=== PATIENT | female | born 1975 | race Caucasian/White ===

== ENCOUNTER 2019-08-18 02:00 | Emergency (ER) | payer OTHER ==
[~2019-08-18] VITALS: Ht 162.6 cm; Wt 104.3 kg
--- NOTE | 2019-08-18 02:24 | PHYS DOC ---
Past Medical History Past Medical History: Hypothyroid Additional Information: Former smoker Adult General Chief Complaint Chief Complaint: CHEST PAIN HPI HPI Patient is a 44 year old F that identifies as male that presents to the ED with CP. Pt states that she has been having dull intermittent, substernal, chest pain for the last month that became constant the last week. Pain radiates to the back and L shoulder. Associated sx: SOB, tachycardia, vomiting, sweating. Alleviating factors: pushing on chest. Aggravating factors: none. Pt states she went into a walk in clinic on Thursday and had a normal EKG. Review of Systems Review of Systems Constitutional: Denies fever or chills, reports sweats Eyes: Denies redness or eye pain HENT: Denies nasal congestion or sore throat Respiratory: Denies cough, reports shortness of breath Cardiovascular: Reports substernal chest pain that radiates to back GI: Denies abdominal pain, nausea, reports vomiting : Denies dysuria or hematuria Musculoskeletal: Denies back pain or joint pain Integument: Denies rash or skin lesions Neurologic: Denies headache, focal weakness or sensory changes Complete systems were reviewed and found to be within normal limits, except as documented in this note. Current Medications Current Medications Current Medications Medications (Trade) Dose Ordered Sig/Radha Start Time Stop Time Status Last Admin Dose Admin Aspirin (Xavier Aspirin) 325 mg 1X ONCE 08/18/19 02:45 08/18/19 02:46 DC 08/18/19 03:11 325 MG Fentanyl Citrate (Fentanyl 2ml Vial) 50 mcg 1X ONCE 08/18/19 02:45 08/18/19 02:46 DC 08/18/19 03:11 50 MCG Info (CONTRAST GIVEN -- Rx MONITORING) 1 each PRN DAILY PRN 08/18/19 04:15 08/20/19 04:14 Iohexol (Omnipaque 350 Mg/ml) 75 ml 1X ONCE 08/18/19 04:00 08/18/19 04:24 DC 08/18/19 04:16 75 ML Ondansetron HCl (Zofran) 4 mg 1X ONCE 08/18/19 02:45 08/18/19 02:46 DC 08/18/19 03:10 4 MG Potassium Chloride (Klor-Con) 40 meq 1X ONCE 08/18/19 05:00 08/18/19 05:01 DC Sodium Chloride 1,000 ml @ 1,000 mls/hr 1X ONCE 08/18/19 02:45 08/18/19 03:44 DC 08/18/19 03:10 1,000 MLS/HR Allergies Allergies Allergies Coded Allergies Type Severity Reaction Last Updated Verified Penicillins Allergy Intermediate 08/18/19 Yes ciprofloxacin Allergy Intermediate 08/18/19 Yes clindamycin Allergy Intermediate 08/18/19 Yes erythromycin base Allergy Intermediate 08/18/19 Yes moxifloxacin Allergy Intermediate 08/18/19 Yes Physical Exam Physical Exam Constitutional: Well developed, well nourished, mild distress, non-toxic ap pearance HENT: Normocephalic, atraumatic, oropharynx moist Eyes: PERRL, EOMI, conjunctiva normal, no discharge Neck: Normal range of motion, no tenderness, supple Cardiovascular: Tachycardic, regular rhythm Lungs & Thorax: Bilateral breath sounds clear to auscultation, no wheezing Abdomen: Soft, no tenderness Skin: Warm, dry, no erythema, no rash Back: No tenderness, no CVA tenderness Extremities: No tenderness, ROM intact, no edema Neurologic: Alert and oriented X 3, normal motor function, normal sensory function, no focal deficits noted Psychologic: Affect normal, judgement normal, mood normal Current Patient Data Vital Signs Vital Signs Date Time Temp Pulse Resp B/P (MAP) Pulse Ox O2 Delivery O2 Flow Rate FiO2 08/18/19 03:11 18 98 08/18/19 02:47 98.1 110 127/65 (85) Room Air 98.1 Lab Values Laboratory Tests Test 08/18/19 03:03 White Blood Count 15.1 x10^3/uL (4.0-11.0) H Red Blood Count 5.79 x10^6/uL (3.50-5.40) H Hemoglobin 18.4 g/dL (12.0-15.5) H Hematocrit 52.8 % (36.0-47.0) H Mean Corpuscular Volume 91 fL (79-100) Mean Corpuscular Hemoglobin 32 pg (25-35) Mean Corpuscular Hemoglobin Concent 35 g/dL (31-37) Red Cell Distribution Width 12.5 % (11.5-14.5) Platelet Count 237 x10^3/uL (140-400) Neutrophils (%) (Auto) 69 % (31-73) Lymphocytes (%) (Auto) 22 % (24-48) L Monocytes (%) (Auto) 6 % (0-9) Eosinophils (%) (Auto) 2 % (0-3) Basophils (%) (Auto) 1 % (0-3) Neutrophils # (Auto) 10.5 x10^3/uL (1.8-7.7) H Lymphocytes # (Auto) 3.3 x10^3/uL (1.0-4.8) Monocytes # (Auto) 0.9 x10^3/uL (0.0-1.1) Eosinophils # (Auto) 0.3 x10^3/uL (0.0-0.7) Basophils # (Auto) 0.1 x10^3/uL (0.0-0.2) Prothrombin Time 12.9 SEC (11.7-14.0) Prothrombin Time INR 1.0 (0.8-1.1) Activated Partial Thromboplast Time 25 SEC (24-38) Sodium Level 138 mmol/L (136-145) Potassium Level 3.2 mmol/L (3.5-5.1) L Chloride Level 99 mmol/L (98-107) Carbon Dioxide Level 27 mmol/L (21-32) Anion Gap 12 (6-14) Blood Urea Nitrogen 16 mg/dL (7-20) Creatinine 1.2 mg/dL (0.6-1.0) H Estimated GFR (Cockcroft-Gault) 49.3 BUN/Creatinine Ratio 13 (6-20) Glucose Level 144 mg/dL (70-99) H Lactic Acid Level 2.2 mmol/L (0.4-2.0) H Calcium Level 9.2 mg/dL (8.5-10.1) Magnesium Level 1.8 mg/dL (1.8-2.4) Total Bilirubin 0.3 mg/dL (0.2-1.0) Aspartate Amino Transferase (AST) 22 U/L (15-37) Alanine Aminotransferase (ALT) 44 U/L (14-59) Alkaline Phosphatase 45 U/L (46-116) L Creatine Kinase 111 U/L (26-192) Creatine Kinase MB (Mass) 0.7 ng/mL (0.0-3.6) Creatine Kinase MB Relative Index 0.6 % (0-4) Troponin I Quantitative < 0.017 ng/mL (0.000-0.055) XH-Fgu-N-Type Natriuretic Peptide 7 pg/mL (0-124) Total Protein 7.7 g/dL (6.4-8.2) Albumin 4.2 g/dL (3.4-5.0) Albumin/Globulin Ratio 1.2 (1.0-1.7) Lipase 208 U/L (73-393) Laboratory Tests 08/18/19 03:03 Laboratory Tests 08/18/19 03:03 EKG EKG @0207, tachycardic at 105bpm, otherwise normal, No STEMI Radiology/Procedures Radiology/Procedures [] Course & Med Decision Making Course & Med Decision Making Pertinent Labs and Imaging studies reviewed. (See chart for details) Pt is a 44yo F that identifies as male presents to the ED for chest pain for the last 2 months. Cardiac workup unremarkable. Resting comfortably in the ED [place] at 0520. CT showed incidental pulmonary nodules. Extensive discussion with pt regarding these findings, risk factors, and need to follow up with PCP for further evaluation. Pt was understanding and agreeable with plan. Due to pt being without any urinary symptoms and requesting to go home, will cancel UA. Pt discharge home with Zofran and Protonix. Dragon Disclaimer Dragon Disclaimer This electronic medical record was generated, in whole or in part, using a voice recognition dictation system. Departure Departure Impression: Primary Impression: Atypical chest pain Additional Impressions: Pulmonary nodules Hiatal hernia Hypokalemia Disposition: HOME, SELF-CARE Condition: STABLE Referrals: MAGDALENA BROWER MD Patient Instructions: Chest Pain (Nonspecific), [id number], Hiatal Hernia, Hypokalemia-Brief, Potassium Content of Foods, Pulmonary Nodule, [id number] Scripts Pantoprazole Sodium (PROTONIX) 20 Mg Tablet. 2 TAB PO DAILY, #30 TAB Prov: RAJNI GANN DO 08/18/19 Ondansetron (ONDANSETRON ODT) 4 Mg Tab.rapdis 1 TAB PO PRN Q6-8HRS PRN for NAUSEA, #16 TAB Prov: RAJNI GANN DO 08/18/19 Problem Qualifiers RAJNI GANN DO Aug 18, 2019 02:24
[2019-08-18] MEDS ORDERED: IV NORMAL SALINE 1000ML BAG 1,000 ML IV ONE (02:45)
[2019-08-18] MEDS ORDERED: ASPIRIN 325 MG TABLET PO ONE (02:45)
[2019-08-18] MEDS ORDERED: fentaNYL PF VIAL 100 MCG/2 ML VIAL IVP ONE (02:45)
[2019-08-18] MEDS ORDERED: ONDANSETRON PF 4 MG/2 ML VIAL. IVP ONE (02:45)
[2019-08-18 03:16] LABS: BASO # 0.1 x10^3/uL (0.0-0.2); BASO % 1 % (0-3); EOS # 0.3 x10^3/uL (0.0-0.7); EOS % 2 % (0-3); HEMATOCRIT 52.8 % (36.0-47.0); HEMOGLOBIN 18.4 g/dL (12.0-15.5); LYMPH # 3.3 x10^3/uL (1.0-4.8); LYMPH % 22 % (24-48); MEAN CORPUSCULAR HEMOGLOBIN 32 pg (25-35); MEAN CORPUSCULAR HGB CONC 35 g/dL (31-37); MEAN CORPUSCULAR VOLUME 91 fL (79-100); MONO # 0.9 x10^3/uL (0.0-1.1); MONO % 6 % (0-9); NEUT # 10.5 x10^3/uL (1.8-7.7); NEUT % 69 % (31-73); PLATELET COUNT 237 x10^3/uL (140-400); RED BLOOD COUNT 5.79 x10^6/uL (3.50-5.40); RED CELL DISTRIBUTION WIDTH 12.5 % (11.5-14.5); WHITE BLOOD COUNT 15.1 x10^3/uL (4.0-11.0)
[2019-08-18 03:23] LABS: PROTHROMBIN TIME PATIENT 12.9 SEC (11.7-14.0)
[2019-08-18 03:29] LABS: CALCIUM 9.2 mg/dL (8.5-10.1); CREATININE 1.2 mg/dL (0.6-1.0); GFR 49.3; POTASSIUM 3.2 mmol/L (3.5-5.1)
[2019-08-18 03:40] LABS: ALBUMIN 4.2 g/dL (3.4-5.0); ALBUMIN/GLOBULIN RATIO 1.2 (1.0-1.7); MAGNESIUM 1.8 mg/dL (1.8-2.4); TOTAL BILIRUBIN 0.3 mg/dL (0.2-1.0); TOTAL PROTEIN 7.7 g/dL (6.4-8.2)
[2019-08-18] MEDS ORDERED: IOHEXOL 350 MG/ML 100 ML VIAL. IV ONE (04:00)
[2019-08-18] MEDS ORDERED: CONTRAST GIVEN. MC PRN (04:15)
--- NOTE | 2019-08-18 04:57 | RAD ---
CT angiography chest with contrast PQRS statement: CT scans at this facility use dose reduction including either automated exposure control, iterative reconstructions, and /or weight based radiation dosing via mA and kV modification when appropriate to reduce radiation dose to as low as reasonably achievable. HISTORY: Shortness of breath. TECHNIQUE: CT imaging the chest with 75 mL Omnipaque 350 intravenous contrast with 3-D MIP reconstructions of the pulmonary arteries. FINDINGS: There is absent contrast density within the pulmonary arteries and right heart chambers with all the contrast within the aorta and left heart due to timing of imaging the contrast bolus or patient Valsalva during the exam, not allowing assessment for pulmonary emboli. Small sliding hiatal hernia gastroesophageal junction. Esophagus unremarkable. Aorta unremarkable. No adenopathy in the chest. Bilateral mastectomy. Triangular 5 mm nodule of the lingula image 84. Left lower lobe oval subpleural solid 6 mm nodule image 106. Oval solid right middle lobe 6 a pulmonary nodule image 100. 3 mm solid nodule right lower lobe image 105 posterior of which is a 2 mm nodule. No pneumothorax or pulmonary opacities or pleural effusions. Bones are unremarkable IMPRESSION: 1. No acute process. There is limited contrast density within the pulmonary arteries not allowing assessment for emboli. If there is a high clinical suspicion for pulmonary emboli consider further assessment with nuclear medicine imaging. 2. Solid pulmonary nodules largest measuring 6 mm. Per Fleischner guidelines follow-up CT imaging in 6 months is advised. 3. Small sliding hiatal hernia gastroesophageal junction. Electronically signed by: Sebastian De La Torre MD (08/18/2019 4:54 AM) [id number]
[2019-08-18] MEDS ORDERED: POTASSIUM CHLORIDE 20 MEQ TABLET.ER. PO ONE (05:00)
[2019-08-18] MEDS ORDERED: ONDA4TAB12 PO (05:24)
[2019-08-18] MEDS ORDERED: PANT20TA2 PO (05:24)
[2019-08-18 05:32] VITALS: BP 147/87
--- NOTE | 2019-08-18 06:50 | EKG ---
[facility] [address] [place] [address] Test Date: 2019-08-18 Test Time: 02:07:28 Pat Name: SANDIP PENA Department: Room: Gender: F [employer] Project [employer]: : 1975 Requested By: RAJNI GANN Order Number: [id number] Reading MD: Measurements Intervals [place] Rate: 104 P: -52 MI: 92 QRS: 28 QRSD: 98 T: 44 QT: 342 QTc: 456 Interpretive Statements SINUS TACHYCARDIA OTHERWISE NORMAL ECG No previous ECG available for comparison
== END 2019-08-18 05:38 | disposition home or self-care (01) ==
LOC: ER 02:00
DX: R07.2 Precordial pain (principal); R91.1 Solitary pulmonary nodule; K44.9 Diaphragmatic hernia without obstruction or gangrene; E87.6 Hypokalemia; R11.2 Nausea with vomiting, unspecified; E03.9 Hypothyroidism, unspecified; Z87.891 Personal history of nicotine dependence; Z88.0 Allergy status to penicillin; Z88.1 Allergy status to other antibiotic agents
CPT/HCPCS: 36415; 71275; 80053; 82553; 83605; 83690; 83735; 83880; 84484; 85025; 85610; 85730; 93005; 96361; 96374; 96375; 99285; J2405; J3010; J7030; Q9967